=== PATIENT | female | born 1980 | race Caucasian/White ===

== ENCOUNTER → 2017-02-11 | Day surgery (SDC) | payer OTHER ==
[~2017-02-11] VITALS: Ht 152.4 cm; Wt 51.9 kg
[~2017-02-11] MED LIST: *ONDANSETRON 4 MG VIAL PERIprocedural Use ONLY ONE; *PROMETHAZINE 25 MG/ML VIAL PERIprocedural use ONLY ONE; *morphine SULFATE 8 MG/ML PERIprocedure ONLY ONE; ACETAMINOPHEN 1000 MG/100 ML VIAL IV ONE; APREPITANT 40 MG CAP ONE; BUPIVACAINE/EPINEPHRINE 0.5% PF 10 ML VIAL ONE; CHLORHEXIDINE GLUCONATE 2 % 1 PACK (2 CLOTHS) TOPICAL PRN; DO NOT ADM ANY ANTICOAGULANT DRUGS PRN; FAMOTIDINE 20 MG/2 ML VIAL ONE; INSULIN HUMAN REGULAR 1,000 UNITS/10 ML VIAL SQ PRN; KETOROLAC TROMETHAMINE 60 MG/2 ML (IM) VIAL IM ONE; LACT1CAP18 PO; LACTATED RINGER'S 1000 ML INJ 1,000 ML IV ONE; LACTATED RINGER'S 1000 ML IV PRN; METOPROLOL TARTRATE 25 MG TAB PO PRN; MIDAZOLAM HCL 2 MG/2 ML VIAL ONE; MULTTAB24 PO; NEOSTIGMINE 3 MG/3 ML SYR IV ONE; ONDANSETRON HCL 4 MG/2 ML VIAL IV PUSH ONE; PERC5TAB12 PO; PHENYLEPH/NS 1000 MCG/10 ML SYR IV ONE; POVIDONE IODINE 5% (ANTISEPSIS KIT) 4 APPLICATIONS EACH NARE PRN; PROPOFOL 200 MG/20 ML AMP IV ONE; SODIUM CHLORID 0.9% 500 ML IV PRN; SUGAMMADEX SODIUM 200 MG/2 ML VIAL IV PUSH ONE; VITA500T83 PO; ePHEDrine/NS 25 MG/5 ML SYR IV ONE; oxyCODONE/ACETAMINOPHEN 5 MG/325 MG TAB PO PRN
[2017-02-11 05:40] VITALS: BP 103/63; PULSE 60; RESP 18; TEMP 98.5; O2SAT 98
[2017-02-11 06:40] LABS: AUTOMATED NEUTROPHIL # 2.8 TH/MM3 (1.8-7.7); BASOPHIL % 0.7 % (0.0-2.0); EOSINOPHIL # 0.1 TH/MM3 (0-0.4); EOSINOPHIL % 2.6 % (0.0-4.0); HEMATOCRIT 41.2 % (35.0-46.0); HEMO FLAGS DIFF FINAL; LYMPH % 37.2 % (9.0-44.0); LYMPHOCYTE # 2.1 TH/MM3 (1.0-4.8); MEAN CELL VOLUME 86.4 FL (80.0-100.0); MEAN CORPUSCULAR HEMOGLOBIN 29.6 PG (27.0-34.0); MEAN CORPUSCULAR HGB CONC 34.2 % (32.0-36.0); MONO % 8.2 % (0.0-8.0); NEUT % 51.3 % (16.0-70.0); PLATELET COUNT 187 TH/MM3 (150-450); RED BLOOD COUNT 4.77 MIL/MM3 (4.00-5.30); RED CELL DISTRIBUTION WIDTH 13.4 % (11.6-17.2); WHITE BLOOD COUNT 5.5 TH/MM3 (4.0-11.0)
--- NOTE | 2017-02-11 09:25 | HHI.DCPOC ---
Discharge Care Plan Diagnosis: (1) Ovarian cyst Report Symptoms to Your Doctor -Temperature above 100.5 degrees -Redness, of incision or excessive or foul smelling drainage -Unusual pain or calf pain -Increased vaginal bleeding -Painful or difficulty urinating -Feelings of extreme sadness or anxiety after 2 weeks Goals to Promote Your Health * To prevent worsening of your condition and complications * To maintain your health at the optimal level Directions to Meet Your Goals Take your medications as prescribed Follow your dietary instruction Follow activity as directed Ensure plenty of rest for recovery Drink fluids for hydration Keep your appointments as scheduled Take your immunizations and boosters as scheduled If your symptoms worsen call your PCP, if no PCP go to Urgent Care Center or Emergency Room Smoking is Dangerous to Your Health. Avoid second hand smoke Call the 24-hour crisis hotline for domestic abuse at Britton Martin MD Feb 11, 2017 09:25
--- NOTE | 2017-02-11 10:36 | PD.OP ---
Operative Report Date of Surgery: Feb 11, 2017 Preoperative Diagnosis: (1) Right ovarian cyst Postoperative Diagnosis: (1) Right ovarian cyst Procedure: D&C HSC and oper LAS with right oophorectomy OC and ablation of endometriosis Anesthesia: gen Surgeon: Britton Martin Aids Nurse(s): no Operation and Findings: spec: right ovary and endometrial curettings Britton Martin MD Feb 11, 2017 10:36
[2017-02-11 10:50] VITALS: BP 102/52; PULSE 63; RESP 16; TEMP 98.1; O2SAT 100
--- NOTE | 2017-02-11 11:47 | MP ---
cc: JESSICA MARTIN M.D. DATE OF SURGERY 02/11/2017 SURGERY 1. Dilatation and curettage. 2. Hysteroscopy. 3. Operative laparoscopy with a right oophorectomy, lysis of adhesion and ablation of endometriosis. PREOPERATIVE DIAGNOSES 1. Pelvic pain. 2. Right ovarian cyst. POSTOPERATIVE DIAGNOSES 1. Pelvic pain. 2. Right ovarian cyst. 3. Endometriosis. SURGEON Jessica Martin MD ANESTHESIA Lois Womack MD ANESTHESIA General anesthesia. ESTIMATED BLOOD LOSS 50 cc. PROCEDURE IN DETAIL After informed consent the patient was taken to the operating room where she was placed under general anesthesia, placed in spine position, legs in the [place] stirrups. The abdomen, perineum and vagina were prepped and draped in normal sterile fashion. After adequate anesthesia was assured and time-out was reassured, a speculum was placed in the vagina. Cervix was grasped with a single-tooth tenaculum, dilated to accommodate a 4-mm hysteroscope, passed the hysteroscope to the fundus. Visualization of the entire uterus revealed a thickened endometrium but no other abnormalities; no polyps or fibroids. Tubal ostia were seen. At this point the hysteroscope was removed. The D&C was performed and an acorn uterine manipulator was placed. Gloves were changed and a 5-mm infraumbilical incision was then made after injecting with 0.25% Marcaine with epinephrine. We entered the abdomen under direct visualization. A suprapubic 10-mm trocar was placed through an old scar and a right lower quadrant 5-mm trocar was placed; this was all done without difficulty. Good visualization of the upper and lower abdomen revealed endometriosis throughout. The large right endometrioma was visualized. The fallopian tube was relatively normal. The left fallopian tube seem to be slightly adherent to the wall and kinked right at the opening of the uterus with endometriosis. All endometriosis in the pelvis that could be seen was ablated. The right ovary was removed by coming across into the infundibulopelvic ligament, securing the blood supply and dissecting through scar tissue and thickened area across the posterior cul-de-sac and the uterus to remove the ovary from that area. Good hemostasis was achieved. Rolling the ovary out, the ovary was opened and drained for visualization purposes. We removed the ovary completely, pulling it from the mesosalpinx and remaining good blood supply to the right fallopian tube. At this point on the survey of the pelvis good hemostasis was achieved. All endometriosis was ablated. The pelvis was irrigated well. The colon was adherent to the posterior uterus and there was scar tissue which was taken down from previous endometriosis. The patient tolerated the procedure well. She was taken awakened and taken to the recovery room in stable condition after incisions were closed. The 5-mm incision was closed with a simple stitch and the 10-mm incision was closed at the fascia with a subcuticular stitch. All instruments were removed from the vagina. The patient was doing well and taken to the recovery room. MD ALY Hanks/YG /9:10 AM /11:39 AM
== END | disposition home or self-care (01) ==
LOC: HSDC 05:34
PROVIDERS: ATTEND Obstetrics & Gynecology
DX: R10.2 Pelvic and perineal pain (principal); N83.201 Unspecified ovarian cyst, right side; N80.1 Endometriosis of ovary
CPT/HCPCS: 00840; 00952; 58563; 58661; 84703; 85025; 86850; 86900; 86901; 88305; 88307; J0131; J1885; J2250; J2270; J2370; J2405; J2710; J3010; J7120; J8501; J2550